=== PATIENT | male | born 1945 | race Caucasian/White ===

== ENCOUNTER 2021-03-14 15:18 | Emergency (ER) | payer MEDICARE, SELFPAY ==
--- NOTE | 2021-03-14 15:28 | ED.ANIMALBIT ---
HPI - Animal Bite General Chief Complaint: Animal Bite Stated Complaint: Dog Bite/ Right Hand Time Seen by Provider: 03/14/21 15:28 Source: patient, family and RN notes reviewed History of Present Illness HPI narrative: Patient is a 75-year-old male who presents the urgent care with his spouse with complaints of a dog bite to the right hand. Patient states that his dog is up-to-date on his shots. States that he is not up-to-date on his tetanus. States that the incident happened on Tuesday. States that the dog is not aggressive he just grabbed her wrong . Patient took ibuprofen this morning but only 400 mg. Patient was unaware that he was running a fever. Denies of any nausea or vomiting. No other acute complaints. No acute distress noted. Patient aware of the plan of care. Some parts of this dictation were generated by voice recognition software and may contain typographical and/or grammatical inaccuracies. Related Data Home Medications Medication Instructions Recorded Confirmed pravastatin 40 mg PO DAILY 03/14/21 03/14/21 timolol maleate 0.5 drp EACH EYE DAILY 03/14/21 03/14/21 Allergies Allergy/AdvReac Type Severity Reaction Status Date / Time shellfish derived Allergy Unknown Unknown Verified 10/06/18 18:39 Review of Systems Review of Systems: CONSTITUTIONAL: Denies fever, chills, or sweats. EYES: Denies visual changes, redness, or discharge. ENT: Denies rhinorrhea, congestion, sore throat, or otalgia. CARDIOVASCULAR: Denies chest pain, palpitations, or edema. RESPIRATORY: Denies cough or dyspnea. GASTROINTESTINAL: Denies abdominal pain, nausea, vomiting, or diarrhea. GENITOURINARY: Denies dysuria or hematuria. SKIN: Reports of a dog bite to the right hand with redness and swelling MUSCULOSKELETAL: Denies back pain, joint pain, or myalgia. NEUROLOGIC: Denies headache, numbness, or weakness. All other systems reviewed are negative, except as documented in HPI. PMFSH Comments At the time of my signature, I reviewed and agree with the nursing past medical, surgical, social, and family history. There is no relevant family history pertinent to the patient complaint. Exam Narrative: GENERAL: This is a well-nourished, well-developed patient, in no apparent distress. HEAD: normocephalic, atraumatic. EYES: PERRL. Sclera clear/white. Vision is grossly intact. EARS: External ears normal NOSE: External nose normal with no obvious nasal discharge, nares without redness, no rhinorrhea. THROAT: Mucous membranes moist, NECK: Neck supple CARDIOVASCULAR: Regular rate and rhythm without murmurs, gallops, or rubs. RESPIRATORY: Clear to auscultation. Breath sounds equal bilaterally. No wheezes, rales, or rhonchi. SKIN: Scabbed wounds noted to the right thumb and dorsal aspect of the right hand NEURO: awake, alert, and oriented to person, place and time. There were no obvious focal neurologic abnormalities. EXTREMITIES: Range of motion to right upper extremity within normal limits with positive strong right pedal pulse and capillary refill less than 2 seconds. Mild edema with moderate erythema Course Vital Signs Vital signs: Vital Signs Temperature 103.4 F H 03/14/21 15:31 Pulse Rate 80 03/14/21 15:31 Respiratory Rate 16 03/14/21 15:31 Blood Pressure 155/85 H 03/14/21 15:31 Pulse Oximetry 95 03/14/21 15:31 Temperature 103.4 F H 03/14/21 15:31 Pulse Rate 80 03/14/21 15:31 Respiratory Rate 16 03/14/21 15:31 Blood Pressure 155/85 H 03/14/21 15:31 Pulse Oximetry 95 03/14/21 15:31 Reviewed-patient is informed that they may have pre-hypertension or hypertension based on a blood pressure reading in the department. I recommend the patient call the primary care provider listed on their discharge instructions or a physician of their choice this week to arrange follow-up for further evaluation of possible pre-hypertension or hypertension. MDM - Animal Bite MDM Narrative Medical decision making narrat
[2021-03-14 15:31] VITALS: BP 155/85; PULSE 80; RESP 16; TEMP 39.7; O2SAT 95
[2021-03-14 15:58] VITALS: TEMP 39.7
[2021-03-14] MEDS: TETANUS,DIPHTHERIA,AC PERTUSSIS ADULT (0.5 ML) BOOSTRIX IM (15:58)
[2021-03-14] MEDS: ACETAMINOPHEN 500 MG TABLET 1000 MG PO (15:58)
== END 2021-03-14 16:21 | disposition left against medical advice (07) ==
PROVIDERS: Emergency Provider Nurse Practitioner Family; PCP Family Medicine
DX: S61.451A Open bite of right hand, initial encounter (principal); Z23 Encounter for immunization; W54.0XXA Bitten by dog, initial encounter
CPT/HCPCS: 90471; 90715; 99213; A9270; G0463